=== PATIENT | female | born 1995 | race African-American/Black ===

== ENCOUNTER 2018-11-17 15:48 | Emergency (ER) | payer OTHER ==
[~2018-11-17] VITALS: Ht 175.3 cm; Wt 66.7 kg
[2018-11-17] MEDS ORDERED: ONDANSETRON ODT 4 MG TAB.RAPDIS PO ONE (16:30)
[2018-11-17] MEDS ORDERED: HYOSCYAMINE 0.125 MG TAB.RAPDIS PO ONE (16:30)
--- NOTE | 2018-11-17 16:43 | PHYS DOC ---
Past History Past Medical History: No Pertinent History Past Surgical History: Tonsillectomy Smoking: Cigarettes, Less than 1pk/day Additional Smoking Information: 1/2 PACK Alcohol Use: None Drug Use: None Adult General Chief Complaint Chief Complaint: NAUSEA/VOMITING/DIARRHEA HPI HPI Patient is a 3-year-old female presents with nausea and vomiting for the past week, waxing and waning. She took a home test and reports that was faintly positive. She had an abnormal period approximately 2 weeks ago. No blood in the emesis. No diarrhea. No travel. No previous surgical history on her abdomen. Nothing seems to make the symptoms better or worse. No sick family members or contacts. Reports that there is a mild aching and cramping in her lower abdomen. No increased discomfort with bumps on the car ride to the emergency department.[] Review of Systems Review of Systems Constitutional: Denies fever or chills [] Eyes: Denies change in visual acuity, redness, or eye pain [] HENT: Denies nasal congestion or sore throat [] Respiratory: Denies cough or shortness of breath [] Cardiovascular: No chest pain or palpitations[] GI: See history of present illness[] : Denies dysuria or hematuria [] Musculoskeletal: Denies back pain or joint pain [] Integument: Denies rash or skin lesions [] Neurologic: Denies headache, focal weakness or sensory changes [] Endocrine: Denies polyuria or polydipsia [] All other systems were reviewed and found to be within normal limits, except as documented in this note. Current Medications Current Medications Current Medications Medications (Trade) Dose Ordered Sig/Charlie Start Time Stop Time Status Last Admin Dose Admin Hyoscyamine (Anaspaz) 0.125 mg 1X ONCE 11/17/18 16:30 11/17/18 16:32 DC 11/17/18 16:36 0.125 MG Ondansetron HCl (Zofran Odt) 4 mg 1X ONCE 11/17/18 16:30 11/17/18 16:32 DC 11/17/18 16:37 4 MG Allergies Allergies Allergies Coded Allergies Type Severity Reaction Last Updated Verified No Known Drug Allergies 11/17/18 No Physical Exam Physical Exam Constitutional: Well developed, well nourished, no acute distress, non-toxic appearance. [] HENT: Normocephalic, atraumatic, bilateral external ears normal, oropharynx moist, no oral exudates, nose normal. [] Eyes: PERRLA, EOMI, conjunctiva normal, no discharge. [] Neck: Normal range of motion, no tenderness, supple, no stridor. [] Cardiovascular:Heart rate regular rhythm, no murmur [] Lungs & Thorax: Bilateral breath sounds clear to auscultation [] Abdomen: Bowel sounds normal, soft, no tenderness, no rebound, no guarding, no rigidity, sits up and lays back without any difficulty, no masses, no pulsatile masses. [] Skin: Warm, dry, no erythema, no rash. [] Back: No tenderness, no CVA tenderness. [] Extremities: No tenderness, no cyanosis, no clubbing, ROM intact, no edema. [] Neurologic: Alert and oriented X 3, normal motor function, normal sensory function, no focal deficits noted. [] Psychologic: Affect normal, judgement normal, mood normal. [] Current Patient Data Vital Signs Vital Signs Date Time Temp Pulse Resp B/P (MAP) Pulse Ox O2 Delivery O2 Flow Rate FiO2 11/17/18 16:00 98.2 82 20 99 Room Air Lab Results Laboratory Tests Test 11/17/18 16:13 POC Urine HCG, Qualitative hcg negative (Negative) EKG EKG [] Radiology/Procedures Radiology/Procedures [] Course & Med Decision Making Course & Med Decision Making Pertinent Labs and Imaging studies reviewed. (See chart for details) ED course and medical decision making: Patient with a negative test. She has moist mucous membranes. She is being given antiemetics and antispasmodics in the emergency department. Her is no evidence of this being a related issue. No evidence of oral intake intolerance.[] Dragon Disclaimer Dragon Disclaimer This electronic medical record was generated, in whole or in part, using a voice recognition dictation system. Departure Departure: Impression: Primary Impression: Nausea & vomiting Disposition: 01 HOME, SELF-CARE Condition: IMPROVED Referrals: CARLEY MCFADDEN DO (PCP) Follow up in 2 days Patient Instructions: Nausea and Vomiting Additional Instructions: Drink plenty of fluids, frequent small sips. No fatty foods, no milk, and no pepper for the next 48 hours. For the next 48 hours eat a diet rich in carbohydrates with foods such as bananas, rice, applesauce, and toast. Follow-up with your regular doctor in 2 days. Return to the ER if worsening pain, unable to tolerate liquids, blood in the emesis, or any other concerns. Scripts Ondansetron Hcl (ZOFRAN) 4 Mg Tablet 1 TAB PO Q6HRS for nausea or vomiting, #20 TAB Prov: YASMIN FALCON DO 11/17/18 Hyoscyamine Sulfate (LEVSIN) 0.125 Mg Tablet 0.125 MG PO QID for abdominal pain/cramping, #30 TAB Prov: YASMIN FALCON DO 11/17/18 Problem Qualifiers Primary Impression: Nausea & vomiting Vomiting type: unspecified Vomiting Intractability: non-intractable Qualified Codes: R11.2 - Nausea with vomiting, unspecified YASMIN FALCON DO Nov 17, 2018 16:43
[2018-11-17 16:55] LABS: BILIRUBIN,URINE NEG (NEG); CLARITY,URINE HAZY; COLOR,URINE YELLOW; GLUCOSE,URINE NEG (NEG); NITRITE,URINE NEG (NEG); UROBILINOGEN,URINE 1 mg/dL (0.2 mg/dL)
[2018-11-17 16:56] LABS: BACTERIA,URINE FEW /HPF (0-FEW); SQUAMOUS EPITHELIAL CELL,UR OCC /LPF; WBC,URINE OCC /HPF (0-4)
[2018-11-17 16:57] VITALS: BP 114/68
[2018-11-17] MEDS ORDERED: HYOS0.1264 PO (17:21)
[2018-11-17] MEDS ORDERED: ONDA4TAB7 PO (17:21)
== END 2018-11-17 17:24 | disposition home or self-care (01) ==
LOC: ER 15:48
DX: R11.2 Nausea with vomiting, unspecified (principal); R10.30 Lower abdominal pain, unspecified; F17.210 Nicotine dependence, cigarettes, uncomplicated
CPT/HCPCS: 81001; 81025; 87086; 99284; Q0162